=== PATIENT | male | born 1960 | race Caucasian/White ===

== ENCOUNTER 2018-01-13 10:53 | Emergency (ER) | payer SELFPAY ==
[2018-01-13 11:11] VITALS: BP 137/89
--- NOTE | 2018-01-13 11:41 | EDPHY ---
H & P Time Seen by Provider: 01/13/18 11:05 HPI/ROS: CHIEF COMPLAINT: Laceration left wrist HISTORY OF PRESENT ILLNESS: 57-year-old male presents to the emergency department with laceration to his left wrist. The patient was at work and accidentally cut himself on a miter saw. The incident happened just prior to arrival. He is left-hand dominant. His last tetanus shot was 1 month ago. Denies any other trauma or injury. ROS: Denies numbness or tingling in his fingers, pain in his left elbow or shoulder. Denies retained foreign body. Past Medical/Surgical History: Heart murmur Social History: , works in construction Smoking Status: Never smoked Physical Exam: On examination the patient has a 4 cm laceration to the volar, medial aspect of the left wrist. No evidence of retained foreign body. He has full range of motion of his fingers and his left wrist. No palpable bony tenderness or deformity. Normal sensation to light touch with normal 2 point discrimination. Slow active bleeding noted. No evidence of obvious tendon injury identified. Constitutional: Initial Vital Signs Temperature (C) 36.6 C 01/13/18 11:07 Heart Rate 62 01/13/18 11:07 Respiratory Rate 16 01/13/18 11:07 Blood Pressure 137/89 H 01/13/18 11:07 O2 Sat (%) 97 01/13/18 11:07 O2 Delivery Mode Room Air Allergies/Adverse Reactions: No Known Allergies Allergy (Unverified 01/13/18 11:07) MDM/Departure - MDM Procedures: Laceration repair. Verbal consent was obtained from the patient. The 4 cm laceration on the left wrist was anesthetized using 1% lidocaine with epinephrine. The wound was irrigated with saline, draped and explored to its base with a gloved finger. There were no deep structures involved. No tendon injury was identified. The wound was repaired with 4 0 Ethilon, 9 sutures. The wound repair was simple. The procedure was performed by myself. ED Course/Re-evaluation: 57-year-old male presents to the emergency department with laceration to his left wrist. The wound was repaired, see procedure note. His tetanus shot is current. He was given strict wound care precautions. He was placed in a volar splint. - Depart Disposition: Home, Routine, Self-Care Clinical Impression: Laceration of left wrist Qualifiers: Encounter type: initial encounter Qualified Code(s): S61.512A - Laceration without foreign body of left wrist, initial encounter Condition: Fair Instructions: Care For Your Stitches (ED), Laceration (ED), Acute Wounds (ED) Additional Instructions: Wound Care Follow-Up: Removal of sutures in 10 days. Suture removal is complimentary in uncomplicated cases. Infection or abnormal findings would require reevaluation by the MD. In that case, you may be billed. Return if you notice any signs or symptoms of infection such as redness, swelling, increased pain, fever, purulent drainage. Splint for comfort and support to help minimize flexion of your wrist while sutures are in place.
== END 2018-01-23 15:00 | disposition home or self-care (01) ==
PROC: 0HQEXZZ Repair Left Lower Arm Skin, External Approach (ICD-10-PCS; principal; 2018-01-13)
DX: S61.512A Laceration without foreign body of left wrist, initial encounter (principal); W31.2XXA Contact with powered woodworking and forming machines, initial encounter; Y92.89 Other specified places as the place of occurrence of the external cause; Y93.89 Activity, other specified; Y99.0 Civilian activity done for income or pay
CPT/HCPCS: L3984